=== PATIENT | female | born 1965 | race Caucasian/White ===

== ENCOUNTER 2018-06-27 16:05 | Emergency (ER) | payer SELFPAY ==
[2018-06-27 17:08] VITALS: BP 147/77; PULSE 63; RESP 16; TEMP 36.7; O2SAT 98
--- NOTE | 2018-06-27 17:27 | DI.RAD_ITS ---
SYMPTOM/DIAGNOSIS: TWISTED, PAIN RIGHT WRIST: There is no evidence of an acute fracture or dislocation. Mild degenerative changes are identified.
--- NOTE | 2018-06-27 17:30 | ED.GENADUL_ITS ---
Discharge Plan Disposition Patient Disposition: HOME Condition: Stable Discharge Details Chief Complaint: Orthopedic Clinical Impression: Right wrist sprain Reason For Visit: right wrist Primary Care Provider: CANDIDO GROSSMAN ED Provider: Kadi Chester Home Meds and New Rx's Prescriptions: No Action naproxen sodium [Aleve] 220 mg Capsule 220 mg PO PRN PRNRF: 0 Discharge Instructions Instructions: Wrist Sprain (ED) Additional Instructions: Rest, ice, elevate right wrist as much as possible. Alternate Tylenol and Motrin as needed and directed for pain. Follow-up with your primary care doctor in 1 week for reevaluation. Return to the emergency department with any worsening or new concerning symptoms. 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 Pain with flexion and extension of wrist. No deformity. No right snuffbox tenderness. Active. Motrin or Tylenol for pain. Will send for right wrist x- ray. 1849 --x-ray negative. Appears consistent with strain. Right wrist splint given. Instructed on rest, ice, elevate. Instructed to follow-up with primary care doctor in 1 week for reevaluation as needed and to return here if worse. HPI General Mode of arrival: ambulatory . Date/Time Provider Initiated Documentation: 06/27/18 17:24 . Limitations to Documentation: no limitations . Information obtained by: patient . 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 Patient is not taking anything for pain. Patient denies any other injuries. Past medical history: Diverticulitis, chronic abdominal pain Surgical history: Appendectomy, cholecystectomy, Social history: Denies tobacco, alcohol, drugs Medications naproxen as needed Allergies: Penicillin Related Data Home Medications Medication Instructions Recorded Confirmed naproxen sodium [Aleve] 220 mg PO PRN PRN 06/27/18 06/27/18 Allergies Allergy/AdvReac Type Severity Reaction Status Date / Time penicillin V Allergy Severe Anaphylaxsi Unverified 11/07/18 17:16 s General Stated Complaint: Orthopedic MARGIE: 3 Review of Systems Review of Systems All systems reviewed & are unremarkable except as noted in HPI and below PFSH Social History Smoking/Tobacco Use Status: Never Exam Const General: cooperative, healthy appearing and no acute distress HENMT Head: normal to inspection Mouth: oral mucosae normal Eyes General: appearance normal, both eyes and all related structures Neck Neck: normal visual inspection Resp Effort & Inspection: normal respiratory effort and able to speak in complete sentences Cardio Rate: regular rate Skin General skin exam: no rashes or lesions noted Neuro General: alert, awake and oriented x3 Motor: muscle tone normal throughout Extrem General: normal to inspection and full ROM Right upper extremity: elbow/forearm (No pain with range of motion or palpation. ), wrist (Tenderness to palpation of volar aspect of wrist on ulnar aspect. No right snuffbox tenderness. Pain with extension and flexion. No pain with supination pronation.) and hand (Normal to inspection and palpation) Other: Right radial pulse intact. Psych Appearance: grossly normal Affect: normal affect Course Vital Signs Temperature 98.1 F 06/27/18 17:08 Pulse 63 06/27/18 17:08 Respiratory Rate 16 06/27/18 17:08 Blood Pressure 147/77 H 06/27/18 17:08 Pulse Oximetry 98 06/27/18 17:08 Temperature 98.1 F 06/27/18 17:08 Temperature Source Temporal Artery Scan 06/27/18 17:08 Pulse 63 06/27/18 17:08 Respiratory Rate 16 06/27/18 17:08 Respiratory Effort 06/27/18 17:13 Blood Pressure 147/77 H 06/27/18 17:08 Pulse Oximetry 98 06/27/18 17:08 Oxygen Delivery Method Room Air 06/27/18 17:08 Oxygen Flow Rate 0 06/27/18 17:08 Pain Level 7 06/27/18 17:18
--- NOTE | 2018-06-27 18:45 | DI.VRAD_ITS ---
EXAM: XR Right Wrist Complete, 3 or more Views EXAM DATE/TIME: 06/27/2018 5:30 PM CLINICAL HISTORY: 52 years old, female; Pain; Wrist; Right TECHNIQUE: XR Right wrist 3 or more views. COMPARISON: No relevant prior studies available. FINDINGS: Bones/joints: Mild degenerative changes. No acute fracture. Alignment anatomic. Soft tissues: Normal. IMPRESSION: No acute abnormality. Dictated and Authenticated by: Teddy Humphrey MD. Ordering:HARIKA PERDUE MD
== END 2018-06-27 19:26 | disposition home or self-care (01) ==
PROVIDERS: Emergency Provider Physician Assistant; PCP Family Medicine
DX: S63.501A Unspecified sprain of right wrist, initial encounter (principal); X50.3XXA Overexertion from repetitive movements, initial encounter
CPT/HCPCS: 29125; 99283; 73110; 99282; L3908